=== PATIENT | male | born 1990 | race Caucasian/White ===

== ENCOUNTER 2020-03-17 10:56 | Outpatient (REF) | payer OTHER, SELFPAY | END 2020-03-17 10:57 | disposition home or self-care (01) | LOC: HO.LAB 10:56 | PROVIDERS: Visit Provider Internal Medicine | DX: Z20.828 Contact with and (suspected) exposure to other viral communicable diseases (principal) | CPT/HCPCS: C9803; U0003 ==

== ENCOUNTER 2020-04-15 09:01 | Emergency (ER) | payer OTHER, SELFPAY ==
--- NOTE | 2020-04-15 09:13 | ED.SKABFB ---
HPI - Skin/Abscess/Foreign Bdy General Chief complaint: Skin/Abscess/Foreign Body Stated complaint: rash Time Seen by Provider: 04/15/20 09:13 Source: patient Mode of arrival: ambulatory Limitations: no limitations History of Present Illness HPI narrative: 29 y/o healthy male presenting with itchy rash to his chest neck and arms that started 2 nights ago. He took Benadryl with some relief last night. He denies new soaps, detergents, colognes, or environmental exposures. He has had a rash like this once before several years ago but did not know the cause at the time. It resolved on its own. He denies shortness of breath, wheezing, facial swelling. No known allergies. MD complaint: rash Onset (ago): day(s) (2) Tetanus up to date: unsure Location: neck, chest, back, LUE and RUE Severity: moderate Severity scale (1-10): 6 Quality: burning, constant and pruritic Pain Consistency: intermittent Relieving factors: medication Exacerbating factors: palpation Context: none Associated symptoms: denies other symptoms Treatments prior to arrival: none Related Data Previous Rx's Medication Instructions Recorded prednisone 40 mg PO DAILY #10 tab 04/15/20 Allergies Allergy/AdvReac Type Severity Reaction Status Date / Time No Known Allergies Allergy Unverified 01/21/20 18:54 Review of Systems Review of Systems: Constitutional: No Fever, No Chills ENT/Mouth: No sore throat, No Swallowing Difficulty Eyes: No Eye Pain, No Swelling, No Redness Cardiovascular: No Chest Pain, No SOB Respiratory: No Cough, No Sputum, No Wheezing, No dyspnea Gastrointestinal: No Nausea, No Vomiting, No Diarrhea, No abdominal Pain Musculoskeletal: No joint pain, No Myalgias Skin: No Skin Lesions, + rash Neuro: No Headache PMFSH Past Medical History Attestation statement: The following information was validated with the patient. Medical History (Updated 04/15/20 @ 09:51 by SHERRI Howell) No known health problems Social History Social History Advance Directives: No Advance Directives Information Provided: No Physical Exam Vital Signs: Vital Signs: Last Vital Signs Temp 98.2 F 04/15/20 09:35 Pulse 76 04/15/20 09:35 Resp 16 04/15/20 09:35 BP 126/72 04/15/20 09:35 Pulse Ox 99 04/15/20 09:35 Body Mass Index 26.6 Appearance: Alert. Oriented X3. No acute distress. ENT: Pharynx normal. Neck: Normal inspection. Neck supple. CVS: Normal heart rate and rhythm. Pulses normal. Respiratory: No respiratory distress. Breath sounds normal. Abdomen: Soft and nontender Skin: Skin warm and dry. Normal skin color. Normal skin turgor. Erythematous maculopapular rash scattered on anterior chest wall, posterior neck, bilateral forarms with dermatographism, no crusting or ulcerations. Extremities: No lower extremity edema. Course Course Course Narrative: 29 y/o male presenting with pruritic rash on trunk and arms, unknown etiology. No wheezing, SOB or facial swelling. Will treat for contact dermatitis with course of prednisone and PRN benadryl. Encouraged to f/u with PCP next week and return to ER if symptoms worsen. Discharge Plan Discharge Clinical Impression: Contact dermatitis Qualifiers: Contact dermatitis type: irritant Contact dermatitis trigger: unspecified trigger Qualified Code(s): L24.9 - Irritant contact dermatitis, unspecified cause Patient Disposition: Home, Self-Care Instructions: Dermatitis (ED) Additional Instructions: Take the prescribed Prednisone starting tomorrow - you were given your 1st dose today while in the ER. Take Benadryl 25 mg every 4-6 hours as needed for itching. Use hypoallergenic soap. Avoid lotion, cologne or scented soap. Follow up with your doctor next week. If symptoms worsen, or if you develop shortness of breath, wheezing, facial swelling come back to the ER for further evaluation. Prescriptions: New prednisone 20 mg tablet 40 mg PO DAILY Qty: 10 RF: 0 Stand Alone Forms: Work/School Release Discharge Date/Time: 04/15/20 10:10 Print Language: Citizen Of [place]
[2020-04-15 09:35] VITALS: BP 126/72; PULSE 76; RESP 16; TEMP 36.8; O2SAT 99; BMI 26.6
[2020-04-15] MEDS: diphenhydrAMINE HCL 25 MG TABLET PO (09:51)
[2020-04-15] MEDS: predniSONE 10 MG TABLET 50 MG PO (09:52)
== END 2020-04-15 10:10 | disposition home or self-care (01) ==
PROVIDERS: Emergency Provider Emergency Medicine
DX: L24.9 Irritant contact dermatitis, unspecified cause (principal); Z79.899 Other long term (current) drug therapy
CPT/HCPCS: 99283; Q0163

== ENCOUNTER 2020-05-30 11:48 | Outpatient (REF) | payer OTHER, SELFPAY ==
--- NOTE | 2020-05-30 13:26 | XR_ITS ---
EXAMINATION: XR ANKLE, LEFT CLINICAL INFORMATION: Pain COMPARISON: None TECHNIQUE: AP, lateral, and mortise views of the left ankle. FINDINGS: The bones and soft tissues are normal. No fracture. Alignment is anatomic. Joint spaces are maintained. No joint effusion. XR/XR ankle LT min 3V IMPRESSION: Normal left ankle.
== END 2020-05-30 11:49 | disposition home or self-care (01) ==
LOC: HO.HOSX 11:48
PROVIDERS: Visit Provider Physician Assistant
DX: M25.572 Pain in left ankle and joints of left foot (principal)
CPT/HCPCS: 73610; 99202

== ENCOUNTER 2020-08-03 11:00 | Outpatient (RCR) | payer OTHER, SELFPAY ==
--- NOTE | 2020-06-15 11:56 | MHC.PT.EP ---
[facility] [place] Office [place] Office [place] Office [address] [phone] F: [phone] F: [phone] F: [phone] F: [phone] Physical Therapy Plan of Care Date of Evaluation: 06/15/20 Date of Surgery: Diagnosis: pain in left ankle and joints of left foot Assessment: The patient has reduced ankle ROM, strength as a result of chronic pain. No swelling. No redness noted. Pt has a fairly rigid ankle on left and right left worse than right. 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 He will benefit from ankle DF stretching, pain relieving modalities such as ionto. KT for support, and LE strengthening. Frequency and Duration: The patient will be seen 2x/week x 4 weeks Short Term Goals: 1. Pt to be able to walk with a heel to toe reciprocal gait pattern pain free. 2. Pt to have at least 5 degrees of PROM improved with ankle DF. Penitentiary Goals: 1. Pt to be able to return to all functional tasks without pain limitation. 2. Pt to have AROM of left ankle DF at least 10 degrees for functional use. 3. Pt to be able to return to stair climbing without pain. Treatment Plan: Modalities to reduce pain, spasms and effusion. Manual therapy to restore motion and function. Therapeutic exercise to improve strength and flexibility. Neuromuscular re-education for posture and balance. Therapeutic activities to return to functional activities of daily living. Electronically signed by: Cassandra Wade PT DPT Please sign and return to therapist. Thank you for your referral.
== END 2020-08-13 08:00 | disposition home or self-care (01) ==
LOC: HO.PT 11:00
PROVIDERS: Visit Provider Physician Assistant
DX: M25.572 Pain in left ankle and joints of left foot (principal)
CPT/HCPCS: 97035; 97110; 97112; 97140; 97161; 97530; 97535

== ENCOUNTER 2022-05-18 19:33 | Inpatient (IN) | payer OTHER, SELFPAY ==
--- NOTE | ~2022-05-18 | XR_ITS ---
EXAMINATION: XR CHEST CLINICAL INFORMATION: NG tube placement confirmation COMPARISON: None TECHNIQUE: Frontal view of the chest was obtained. FINDINGS: Enteric tube terminates in the stomach. Lung volumes are low. No consolidation, edema, or effusion. No pneumothorax. The cardiomediastinal silhouette is within normal limits. XR/XR chest 1V IMPRESSION: Enteric tube terminating in the stomach.
--- NOTE | ~2022-05-18 | XR_ITS ---
EXAMINATION: XR ABDOMEN KUB CLINICAL INDICATION: Small bowel obstruction COMPARISON: Abdomen CT from 05/18/2022 TECHNIQUE: AP view of the abdomen. FINDINGS: Lung bases are normal. The tip of the enteric tube is below the diaphragm and in region of the gastric body. Stomach is decompressed. The visualized loops of small bowel that contain gas in the mid to upper abdomen are in the normal size range. There is contrast material within the nondilated colon. No pneumoperitoneum. The visualized bones are normal. XR/XR KUB IMPRESSION: * The tip of the enteric tube is below the diaphragm within the region of gastric body. * There is radiographic improvement in previously observed small bowel obstruction. The currently visualized small bowel loops are in the normal size range. No pneumoperitoneum.
--- NOTE | ~2022-05-18 | CT_ITS ---
EXAMINATION: CT ABDOMEN AND PELVIS WITH CONTRAST CLINICAL INFORMATION: Abdominal pain, nausea and vomiting. COMPARISON: None. TECHNIQUE: Multidetector volumetric images were obtained from the superior aspect of the liver through the pubic symphysis following administration 85 mL of Omnipaque 350 intravenous contrast. Sagittal and coronal reformatted images were obtained on the technologist's workstation. Oral contrast: No This CT examination was performed using dose optimization techniques as appropriate, variously including the following: *Automated exposure control *Adjustment of mA and/or kV according to patient size (this includes techniques or standardized protocols for targeted exams where dose is matched to indication/reason for exam; i.e. extremities or head) *Use of iterative reconstruction technique DLP: 513 mGy-cm FINDINGS: LUNG BASES: No focal consolidation or pleural effusion. LIVER, GALLBLADDER, AND BILIARY TREE: The liver is normal in size, shape, and attenuation. No focal hepatic lesion or biliary ductal dilatation is present. The gallbladder is unremarkable with no evidence of radiopaque gallstones, gallbladder wall thickening, or obvious pericholecystic inflammatory changes. PANCREAS: Unremarkable. SPLEEN: Unremarkable. ADRENAL GLANDS: Unremarkable. KIDNEYS AND URETERS: The kidneys are normal in size, shape, and attenuation. No hydronephrosis, hydroureter, or calculi seen. No perinephric stranding. BLADDER: Unremarkable. GASTROINTESTINAL TRACT: Small bowel dilatation measuring up to 4.2 cm in diameter with air-fluid levels most consistent with a small bowel obstruction. There are tandem areas of luminal narrowing with hyperemia in the right lower quadrant within the distal ileum, for instance as identified on coronal image 31, series 5. No evidence of free air or pneumatosis. No intra-abdominal collection. Mild colonic diverticulosis with no pericolonic inflammatory changes. Normal short appendix (5:47). ABDOMINAL WALL: No significant hernia is appreciated. LYMPH NODES: Engorged mesenteric vasculature with scattered prominent but not pathologically enlarged mesenteric lymph nodes. VASCULAR: Abdominal aorta is of normal diameter. The main portal vein is patent. PELVIC VISCERA: Unremarkable. OSSEOUS STRUCTURES: No acute or aggressive appearing osseous abnormalities. CT/CT abdomen pelvis w IV con IMPRESSION: Findings are most suggestive of a high-grade small bowel obstruction transitioning in the right lower quadrant with there are some loops of distal ileum demonstrating luminal narrowing and hyperemia. No pneumatosis or free air. No drainable intra-abdominal collection.
[2022-05-18 19:44] VITALS: BP 126/72; PULSE 117; RESP 18; TEMP 38.2; O2SAT 97; BMI 28.1
--- NOTE | 2022-05-18 19:46 | ED.ABDPAIN ---
HPI - Abdominal Pain General Chief Complaint: Abdominal Pain <Yolis Lopez NP - Last Filed: 05/18/22 19:48> Stated Complaint: pain in stomach and body <Yolis Lopez NP - Last Filed: 05/18/22 19:48> Time Seen by Provider: 05/18/22 21:43 <Yolis Lopez NP - Last Filed: 05/18/22 19:48> Source: patient <SHERRI Armstrong - Last Filed: 05/19/22 00:42> Mode of arrival: ambulatory <SHERRI Armstrong - Last Filed: 05/19/22 00:42> Limitations: no limitations <SHERRI Armstrong Last Filed: 05/19/22 00:42> History of Present Illness HPI narrative: This is a 31-year-old male without significant medical history presenting to the emergency department with complaints of nausea, vomiting, right-sided abdominal pain that started this morning. According to patient with bothering him most is a abdominal pain, he tells me it started in his epigastric region and now he feels that to the whole right side of his abdomen, he tells me that the pain is constant in nature, describes it as a stabbing pain. Reports this is never happened to him before. He tells me he still has his gallbladder and his appendix. Unable to tell me aggravating or alleviating factors. Patient tells me he has vomited a few times today and has had little to no appetite. He tells me he just does not feel well and he feels like he has no energy. Denies chest pain, shortness of breath, headache, vision changes, dizziness, weakness, blood in stool, blood in vomit, changes in urination. <SHERRI Armstrong - Last Filed: 05/19/22 00:42> Related Data Home Medications: Previous Rx's Medication Instructions Recorded prednisone 20 mg tablet 40 mg PO DAILY #10 tabs 04/15/20 <Yolis Lopez NP - Last Filed: 05/18/22 19:48> Allergies/Adverse Reactions: Allergies Allergy/AdvReac Type Severity Reaction Status Date / Time No Known Allergies Allergy Verified 05/30/20 13:45 <Yolis Lopez NP - Last Filed: 05/18/22 19:48> Review of Systems Review of Systems Constitutional : No Weight loss, No Fever, No Chills, + Fatigue, + Malaise ENT/Mouth : No sore throat, No Rhinorrhea Eyes: No Eye Pain, No Swelling, No Redness Cardiovascular : No Chest Pain, No SOB, No Dyspnea on Exertion, No Orthopnea, No Edema, No Palpitations Respiratory : No Cough, No Sputum, No Wheezing Gastrointestinal : + Nausea, + Vomiting, No Diarrhea, No Constipation, + abdominal Pain, No Hematochezia, No Melena Genitourinary : No Dysuria, No Urinary Frequency, No Hematuria, Musculoskeletal : No joint pain, + Myalgias, No Joint Swelling Skin : No Skin Lesions, No rash Neuro : No Weakness, No Numbness, No Dizziness, No Headache Psych : No Anxiety/Panic, No Depression All other systems reviewed and are negative <SHERRI Armstrong - Last Filed: 05/19/22 00:42> Yes all other systems are reviewed and are negative <SHERRI Armstrong - Last Filed: 05/19/22 00:42> PMFSH Past Medical History Attestation statement: The following information was validated with the patient. 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 <Yolis Lopez NP - Last Filed: 05/18/22 19:48> Physical Exam ED Vital Signs: Vital Signs - 24 hr 05/18/22 19:44 05/18/22 21:27 05/18/22 22:59 Temperature 100.7 F H 99.9 F 99.5 F Pulse Rate 117 H 96 95 Respiratory Rate 18 22 H 22 H Blood Pressure 126/72 130/72 132/75 Pulse Oximetry 97 96 98 Oxygen Delivery Method Room Air Room Air Room Air BMI result Body Mass Index 28.1 <Yolis Lopez NP - Last Filed: 05/18/22 19:48> Vital Signs - 24 hr 05/18/22 19:44 05/18/22 21:27 05/18/22 22:59 Temperature 100.7 F H 99.9 F 99.5 F Pulse Rate 117 H 96 95 Respiratory Rate 18 22 H 22 H Blood Pressure 126/72 130/72 132/75 Pulse Oximetry 97 96 98 Oxygen Delivery Method Room Air Room Air Room Air BMI result Body Mass Index 28.1 Patient was initially noted to have low-grade fever and slight tachycardia <SHERRI Armstrong - Last Filed: 05/19/22 00:42> Appearance: Alert.? Oriented X3.? No acute distress.? Head: Normocephalic, atraumatic, no step-offs or deformities Eyes: Pupils equal, round and reactive to light.? Neck: Normal inspection.? Neck supple.? CVS: Normal heart rate and rhythm.? Pulses normal.? Respiratory: No respiratory distress.? Breath sounds normal.? Abdomen: Soft and tenderness to right side of abdomen. Hypoactive bowel sounds Skin: Skin warm and dry.? Normal skin color.? Normal skin turgor.? Extremities: No lower extremity edema.? No calf ttp. 5/5 strength to bilateral upper and lower extremities Neuro: Oriented X 3.? No motor deficit.? No sensory deficit. CN 2-12 intact <SHERRI Armstrong - Last Filed: 05/19/22 00:42> Course Course Course Narrative: This is a rapid medical exam. Defer additional HPI, ROS, PE to primary provider. 31 yo male with here with abdominal pain, headache, body aches since waking. Patient with fever in triage. Will give Tylenol, send testing for flu, COVID, RSV. <Yolis Lopez NP - Last Filed: 05/18/22 19:48> Reevaluation(s) Reevaluation #1: CBC appears to be within normal limits. Chemistry with no acute electrolyte abnormalities requiring intervention. Slightly elevated bilirubin 2.2 and slightly elevated transaminases. Normal lipase. Patient's CT of the abdomen and pelvis showing high-grade small-bowel obstruction with a transition point in the right lower quadrant where there is some loops of distal ileum demonstrating luminal narrowing and hyperemia, consistent with pain to palpation on exam. Will reach out to surgery. Plan to put NG tube in. <SHERRI Armstrong - Last Filed: 05/19/22 00:42> Time: 00:34 <SHERRI Armstrong - Last Filed: 05/19/22 00:42> Medical Decision Making Medical Decision Making [facility] Narrative: 2300 31-year-old male presents with nausea, vomiting, abdominal pain since this morning. Poor p.o. intake as well. Upon physical examination patient tender to the entire right side of abdomen w/ hypoactive bowel sounds. Patient's vital signs initially with fever, fever improved after Tylenol. Concerns for possible viral infection. Will rule out intra-abdominal processes such as appendicitis, cholecystitis, diverticulitis, obstruction. However on my examination there is no signs of acute abdomen. Plan at this time labs, imaging, urine. Will give GI cocktail <SHERRI Armstrong - Last Filed: 05/19/22 00:42> Differential Diagnosis Differential Diagnoses: The differential diagnosis associated with the presentation includes <SHERRI Armstrong - Last Filed: 05/19/22 00:42> Concerns for possible viral infection. Will rule out intra-abdominal processes such as appendicitis, cholecystitis, diverticulitis, obstruction. However on my examination there is no signs of acute abdomen. <SHERRI Armstrong Last Filed: 05/19/22 00:42> Admission/Observation Consideration of admission/observation: Escalation of care including admission/observation considered <SHERRI Armstrong Last Filed: 05/19/22 00:42> Consult Healthcare Provider Management of the patient was discussed with: Dampener Operator () <SHERRI Armstrong Last Filed: 05/19/22 00:42> Lab Data [facility] Lab Attestation statement: I reviewed the patient's lab results. <SHERRI Armstrong - Last Filed: 05/19/22 00:42> Result Diagrams: 05/18/22 22:41 05/18/22 22:41 <Yolis Lopez NP - Last Filed: 05/18/22 19:48> Labs: Lab Results 05/18/22 05/18/22 05/18/22 Range/Units 19:51 22:41 22:41 WBC 8.5 (4.8-10.8) X10*3/uL RBC 4.32 L (4.60-5.80) X10*6/uL Hgb 14.2 (14.0-18.0) g/dl Hct 39.7 L (42.0-52.0) % MCV 91.9 (80.0-98.0) fL MCH 32.9 (27.0-33.0) pg MCHC 35.8 (31.0-36.0) g/dl RDW 12.5 (11.0-16.0) % Plt Count 177 (160-400) X10*3/uL MPV 9.4 (9.4-12.4) fL Immature Gran % (Auto) 0.4 (0.0-0.4) % Neut % (Auto) 83.9 H (45-73) % Lymph % (Auto) 6.6 L (20-40) % [place] % (Auto) 8.7 (2-11) % Eos % (Auto) 0.2 (0-4) % Baso % (Auto) 0.2 (0-2) % Lymph # (Auto) 0.6 L (1.2-4.9) X10*3/uL [place] # (Auto) 0.7 (0.1-1.2) X10*3/uL Eos # (Auto) 0.0 (0.0-0.4) X10*3/uL Baso # (Auto) 0.0 (0.0-0.2) X10*3/uL Abs Immat Gran (auto) 0.03 (0.00-0.03) X10*3/uL Absolute Neuts (auto) 7.1 (2.0-8.3) x10*3/uL Absolute Nucleated RBC 0.000 (0.0-0.012) X10*3/uL Nucleated RBC % (auto) 0.0 (0.0-0.2) /100WBC Sodium 139 (135-145) mmol/L Potassium 3.8 (3.3-5.1) mmol/L Chloride 104 (96-108) mmol/L Carbon Dioxide 26 (22-29) mmol/L Anion Gap 13 (12-20) BUN 18 H (9-16) mg/dL Creatinine 0.91 (0.5-1.4) mg/dL Estim Creat Clear Calc 124.1 Estimated GFR > 60 Random Glucose 128 H (60-115) mg/dL Calcium 9.3 (8.4-10.2) mg/dL Total Bilirubin 2.2 H (0.0-1.0) mg/dL AST 39 H (5-37) U/L ALT 48 H (0-40) U/L Alkaline Phosphatase 76 (39-117) U/L Total Protein 8.1 H (6.5-8.0) g/dL Albumin 4.9 (3.5-5.0) g/dL Lipase 7 L (8-78) U/L Influenza Type A (PCR) NEGATIVE (Negative) Influenza Type B (PCR) NEGATIVE (Negative) RSV RNA Qual (PCR) NEGATIVE (Negative) SARS-CoV-2 RNA (RT-PCR) NEGATIVE (Negative) <Yolis Lopez, BATCH FREEZER - Last Filed: 05/18/22 19:48> Lab Results 05/18/22 05/18/22 05/18/22 Range/Units 19:51 22:41 22:41 WBC 8.5 (4.8-10.8) X10*3/uL RBC 4.32 L (4.60-5.80) X10*6/uL Hgb 14.2 (14.0-18.0) g/dl Hct 39.7 L (42.0-52.0) % MCV 91.9 (80.0-98.0) fL MCH 32.9 (27.0-33.0) pg MCHC 35.8 (31.0-36.0) g/dl RDW 12.5 (11.0-16.0) % Plt Count 177 (160-400) X10*3/uL MPV 9.4 (9.4-12.4) fL Immature Gran % (Auto) 0.4 (0.0-0.4) % Neut % (Auto) 83.9 H (45-73) % Lymph % (Auto) 6.6 L (20-40) % [place] % (Auto) 8.7 (2-11) % Eos % (Auto) 0.2 (0-4) % Baso % (Auto) 0.2 (0-2) % Lymph # (Auto) 0.6 L (1.2-4.9) X10*3/uL [place] # (Auto) 0.7 (0.1-1.2) X10*3/uL Eos # (Auto) 0.0 (0.0-0.4) X10*3/uL Baso # (Auto) 0.0 (0.0-0.2) X10*3/uL Abs Immat Gran (auto) 0.03 (0.00-0.03) X10*3/uL Absolute Neuts (auto) 7.1 (2.0-8.3) x10*3/uL Absolute Nucleated RBC 0.000 (0.0-0.012) X10*3/uL Nucleated RBC % (auto) 0.0 (0.0-0.2) /100WBC Sodium 139 (135-145) mmol/L Potassium 3.8 (3.3-5.1) mmol/L Chloride 104 (96-108) mmol/L Carbon Dioxide 26 (22-29) mmol/L Anion Gap 13 (12-20) BUN 18 H (9-16) mg/dL Creatinine 0.91 (0.5-1.4) mg/dL Estim Creat Clear Calc 124.1 Estimated GFR > 60 Random Glucose 128 H (60-115) mg/dL Calcium 9.3 (8.4-10.2) mg/dL Total Bilirubin 2.2 H (0.0-1.0) mg/dL AST 39 H (5-37) U/L ALT 48 H (0-40) U/L Alkaline Phosphatase 76 (39-117) U/L Total Protein 8.1 H (6.5-8.0) g/dL Albumin 4.9 (3.5-5.0) g/dL Lipase 7 L (8-78) U/L Influenza Type A (PCR) NEGATIVE (Negative) Influenza Type B (PCR) NEGATIVE (Negative) RSV RNA Qual (PCR) NEGATIVE (Negative) SARS-CoV-2 RNA (RT-PCR) NEGATIVE (Negative) <SHERRI Armstrong - Last Filed: 05/19/22 00:42> Independent Interpretation I performed an independent interpretation of an: CT Scan (SBO) <SHERRI Armstrong - Last Filed: 05/19/22 00:42> Radiology Impression Discussion of test interpretation with radiology: I have reviewed the radiologist's reading. <SHERRI Armstrong - Last Filed: 05/19/22 00:42> Core Measures AMI core measures followed: Yes <SHERRI Armstrong - Last Filed: 05/19/22 00:42> Measure exclusions: not indicated <SHERRI Armstrong - Last Filed: 05/19/22 00:42> Medications Administered Discontinued Medications Generic Name Dose Route Start Last Admin Trade Name Freq PRN Reason Stop Dose Admin Acetaminophen 975 mg 05/18/22 19:46 05/18/22 19:53 Acetaminophen 325 Mg Tablet PO 05/18/22 19:47 975 mg ONCE ONE Administration Al Hydroxide/Mg Hydroxide 30 ml 05/18/22 23:23 05/18/22 23:35 Magnesium Hydrox/Alum Hydrox 30 Ml Oral.Susp PO 05/18/22 23:24 30 ml ONCE ONE Administration Belladonna Alkaloids/Phenobarbital 10 ml 05/18/22 23:23 05/18/22 23:36 Phenobarb/Hyoscy/Atropine/Scop 10 Ml Elixir PO 05/18/22 23:24 10 ml ONCE ONE Administration Iohexol 85 ml 05/18/22 23:52 05/18/22 23:53 Iohexol 350 Mg/Ml 100 Ml Infus..Btl IV 05/18/22 23:53 85 ml ONCE ONE Administration Ketorolac Tromethamine 30 mg 05/18/22 23:23 05/18/22 23:35 Ketorolac Tromethamine 15 Mg/Ml Vial IVPUSH 05/18/22 23:24 30 mg ONCE ONE Administration Ondansetron HCl 4 mg 05/18/22 23:24 05/18/22 23:35 Ondansetron Hcl 4 Mg/2 Ml Vial IVPUSH 05/18/22 23:25 4 mg ONCE ONE Administration <Yolis Lopez NP - Last Filed: 05/18/22 19:48> Medications Administered Discontinued Medications Generic Name Dose Route Start Last Admin Trade Name Kevin PRN Reason Stop Dose Admin Acetaminophen 975 mg 05/18/22 19:46 05/18/22 19:53 Acetaminophen 325 Mg Tablet PO 05/18/22 19:47 975 mg ONCE ONE Administration Al Hydroxide/Mg Hydroxide 30 ml 05/18/22 23:23 05/18/22 23:35 Magnesium Hydrox/Alum Hydrox 30 Ml Oral.Susp PO 05/18/22 23:24 30 ml ONCE ONE Administration Belladonna Alkaloids/Phenobarbital 10 ml 05/18/22 23:23 05/18/22 23:36 Phenobarb/Hyoscy/Atropine/Scop 10 Ml Elixir PO 05/18/22 23:24 10 ml ONCE ONE Administration Iohexol 85 ml 05/18/22 23:52 05/18/22 23:53 Iohexol 350 Mg/Ml 100 Ml Infus..Btl IV 05/18/22 23:53 85 ml ONCE ONE Administration Ketorolac Tromethamine 30 mg 05/18/22 23:23 05/18/22 23:35 Ketorolac Tromethamine 15 Mg/Ml Vial IVPUSH 05/18/22 23:24 30 mg ONCE ONE Administration Ondansetron HCl 4 mg 05/18/22 23:24 05/18/22 23:35 Ondansetron Hcl 4 Mg/2 Ml Vial IVPUSH 05/18/22 23:25 4 mg ONCE ONE Administration <SHERRI Armstrong - Last Filed: 05/19/22 00:42> Critical Care Time Critical Care Time Critical Care Time: Yes <SHERRI Armstrong - Last Filed: 05/19/22 00:42> Total Critical Care Time: 35 <SHERRI Armstrong - Last Filed: 05/19/22 00:42> Attestation: I attest to this time spent taking care of the patient, obtaining history, physical, reviewing labs, imaging, speaking to my attending, speaking to specialist. <SHERRI Armstrong - Last Filed: 05/19/22 00:42> Discharge Plan Discharge Clinical Impression: Small bowel obstruction, Nausea & vomiting <Yolis Lopez NP - Last Filed: 05/18/22 19:48> Patient Disposition: Admitted As Inpatient <Yolis Lopez NP - Last Filed: 05/18/22 19:48> Prescriptions: No Action prednisone 20 mg tablet 40 mg PO DAILY Qty: 10 0RF <Yolis Lopez NP - Last Filed: 05/18/22 19:48>
[2022-05-18] MEDS: Acetaminophen 325 MG TABLET 975 MG PO (19:53)
[2022-05-18 20:41] LABS: Influenza A PCR NEGATIVE (Negative); Influenza B PCR NEGATIVE (Negative); Resp Syncy Virus RNA Qual PCR NEGATIVE (Negative); SARS COV2 PCR INHOUSE NEGATIVE (Negative)
[2022-05-18 21:27] VITALS: BP 130/72; PULSE 96; RESP 22; TEMP 37.7; O2SAT 96
--- NOTE | 2022-05-18 21:32 | PC.NURSE ---
Addendum entered by Griselda Pace 05/18/22 22:18: Pt has LRQ during palpation pt grimace. Original Note: Assessment : Pt's V/S are stable, pt is a/o x 4, pt is ridgid distended abd and N/V x 1 day, pt lungs sounds are clear throughout. IV has been inserted 20g.
[2022-05-18 22:48] LABS: MANUAL DIFF FLAG NO
[2022-05-18 22:49] LABS: Basophils Percent Auto 0.2 % (0-2); Eosinophils Percent Auto 0.2 % (0-4); Hematocrit 39.7 % (42.0-52.0); Hemoglobin 14.2 g/dl (14.0-18.0); Imm Gran Abs Auto 0.03 X10*3/uL (0.00-0.03); Imm Gran Pct Auto 0.4 % (0.0-0.4); Lymphocytes Absolute Auto 0.6 X10*3/uL (1.2-4.9); Lymphocytes Percent Auto 6.6 % (20-40); Mean Corpuscular HGB Conc 35.8 g/dl (31.0-36.0); Mean Corpuscular Hemoglobin 32.9 pg (27.0-33.0); Mean Corpuscular Volume 91.9 fL (80.0-98.0); Mean Platelet Volume 9.4 fL (9.4-12.4); Monocytes Absolute Auto 0.7 X10*3/uL (0.1-1.2); Monocytes Percent Auto 8.7 % (2-11); Neutrophils Absolute Auto 7.1 x10*3/uL (2.0-8.3); Neutrophils Percent Auto 83.9 % (45-73); Platelet Count 177 X10*3/uL (160-400); Red Blood Count 4.32 X10*6/uL (4.60-5.80); Red Cell Distribution Width 12.5 % (11.0-16.0); White Blood Count 8.5 X10*3/uL (4.8-10.8)
[2022-05-18 22:59] VITALS: BP 132/75; PULSE 95; RESP 22; TEMP 37.5; O2SAT 98
[2022-05-18 23:25] LABS: Alanine Aminotransferase 48 U/L (0-40); Albumin Level 4.9 g/dL (3.5-5.0); Alkaline Phosphatase 76 U/L (39-117); Anion Gap 13 (12-20); Aspartate Amino Transferase 39 U/L (5-37); Bilirubin Total 2.2 mg/dL (0.0-1.0); Blood Urea Nitrogen 18 mg/dL (9-16); Calcium 9.3 mg/dL (8.4-10.2); Carbon Dioxide 26 mmol/L (22-29); Chloride 104 mmol/L (96-108); Creatinine Clr Calc Pharmacy 124.1; Estimated Glomerular Filt Rate > 60; Glucose Random 128 mg/dL (60-115); Lipase 7 U/L (8-78); Potassium 3.8 mmol/L (3.3-5.1); Sodium 139 mmol/L (135-145); Total Protein 8.1 g/dL (6.5-8.0)
[2022-05-18] MEDS: Ketorolac Tromethamine 15 MG/ML VIAL 30 MG IVPUSH (23:35)
[2022-05-18] MEDS: Magnesium Hydrox/Alum Hydrox 30 ML ORAL.SUSP PO (23:35)
[2022-05-18] MEDS: ondansetron HCL 4 MG/2 ML VIAL IVPUSH (23:35)
[2022-05-18] MEDS: PHENobarb/Hyoscy/Atropine/Scop 10 ML ELIXIR PO (23:36)
[2022-05-18] MEDS: iohexoL 350 MG/ML 100 ML INFUS..BTL 85 ML IV (23:53)
[2022-05-19 01:43] VITALS: BP 121/69; PULSE 77; RESP 17; O2SAT 97
[2022-05-19] MEDS: Pantoprazole Sodium 40 MG/10 ML VIAL IVPUSH ×2 (02:13→13:38)
[2022-05-19] MEDS: Piperacillin Sodium/Tazobactam 3.375 GM in 0.9 % Sodium Chloride 50 ML IV ×3 (02:13→18:56)
[2022-05-19] MEDS: Morphine Sulfate 4 MG/ML CARTRIDGE IVPUSH (02:14)
[2022-05-19] MEDS: 0.9 % Sodium Chloride 1,000 ML 100 ML IVCONT ×3 (02:15→20:53)
--- NOTE | 2022-05-19 02:43 | PC.NURSE ---
NG inserted into right nare, patient tolerated procedure well.
--- NOTE | 2022-05-19 02:55 | PC.NURSE ---
Pt's spouse Laura
[2022-05-19 03:52] VITALS: BMI 28.2
[2022-05-19 03:59] VITALS: BP 122/68; PULSE 80; RESP 18; TEMP 36.4; O2SAT 97
[2022-05-19 04:45] VITALS: BMI 28.2
[2022-05-19 05:34] LABS: MANUAL DIFF FLAG NO
[2022-05-19 05:38] LABS: Basophils Percent Auto 0.2 % (0-2); Eosinophils Absolute Auto 0.1 X10*3/uL (0.0-0.4); Eosinophils Percent Auto 1.1 % (0-4); Hematocrit 38.9 % (42.0-52.0); Hemoglobin 13.7 g/dl (14.0-18.0); Imm Gran Abs Auto 0.03 X10*3/uL (0.00-0.03); Imm Gran Pct Auto 0.4 % (0.0-0.4); Lymphocytes Percent Auto 11.7 % (20-40); Mean Corpuscular HGB Conc 35.2 g/dl (31.0-36.0); Mean Corpuscular Hemoglobin 32.8 pg (27.0-33.0); Mean Corpuscular Volume 93.1 fL (80.0-98.0); Monocytes Absolute Auto 0.8 X10*3/uL (0.1-1.2); Neutrophils Absolute Auto 6.5 x10*3/uL (2.0-8.3); Neutrophils Percent Auto 77.6 % (45-73); Platelet Count 165 X10*3/uL (160-400); Red Blood Count 4.18 X10*6/uL (4.60-5.80); Red Cell Distribution Width 12.6 % (11.0-16.0); White Blood Count 8.4 X10*3/uL (4.8-10.8)
[2022-05-19] MEDS: HYDROmorphone HCl 1 MG/ML SYRINGE 0.5 MG IVPUSH ×2 (06:04→15:57)
[2022-05-19 06:52] VITALS: BP 105/58; PULSE 88; RESP 16; TEMP 36.6; O2SAT 94
--- NOTE | 2022-05-19 07:21 | PHA.MEDREC ---
Pharmacy Consult ? Medication Reconciliation Pharmacy has completed the medication reconciliation. Reviewed med rec done by nursing (Maged).
[2022-05-19] MEDS: Ketorolac Tromethamine 30 MG/ML VIAL IVPUSH ×2 (09:13→20:19)
[2022-05-19 15:51] VITALS: BP 110/71; PULSE 82; RESP 18; TEMP 36.4; O2SAT 96
--- NOTE | 2022-05-19 15:54 | P.HPGS_ITS ---
History of Present Illness History of Present Illness Date of Service: 05/19/22 Chief complaint: abdo pain Narrative: Albert Mahan is a 31 year old male who came into the emergency room because he had 24 hours of abdominal pain. He went to work yesterday but the pain was worse so he came to the emergency room. He was vomiting and he did have passage of some stool. No other sick contacts he has not eaten anything unusual he has not had any abdominal surgery in the past. He denies any knowledge of his family having ulcerative colitis or Crohn's disease. NG tube was placed but despite this he still vomited earlier on the floor. Uncertain if it was working as well. He denies any fevers or chills. He has never had pain like this before In the emergency room the patient had a CT scan which showed areas near the distal ileum with narrowing of the small bowel no evidence of ischemic bowel. No free air. His white count is normal Review of Systems Review of Systems: Yes all other systems are reviewed and are negative PMFSH Past Medical History Medical History No known health problems Social History Social History Household Members: Family Housing: Apartment Do you presently have visiting nurse or other home services: No Alcohol intake: current Alcohol intake frequency: holidays/special occasions only Patient Tobacco Use Status: Current everyday Tobacco user Tobacco use type: Cigarette Smoked in Last 30 Days: Yes e-Cigarette/Vaping Use: Never Used Patient Interested in Nicotine Replacement: Yes Patient Given Instructions on How to Stop Smoking: No Second Hand Smoke Exposure: No Use of substances other than those prescribed or required for medical reasons: No Currently Displaying Signs/Symptoms of Drug Intoxication Withdrawal: No Any prior treatment program specific to substance use: No Have you been hit, kicked, punched, or otherwise hurt by someone within the past year? 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 Meds Allergies Allergy/AdvReac Type Severity Reaction Status Date / Time No Known Allergies Allergy Verified 05/30/20 13:45 Active Medications: Current Medications Hydromorphone HCl (Hydromorphone Hcl 1 Mg/Ml Syringe) 0.5 mg IVPUSH Q4H PRN; Protocol PRN Reason: Pain, Severe (Pain Scale 7-10) Last Admin: 05/19/22 06:04 Dose: 0.5 mg Sodium Chloride (Ns) 1,000 mls @ 100 mls/hr IVCONT .Q10H [facility] Last Admin: 05/19/22 13:37 Dose: 100 mls/hr Piperacillin Sod/Tazobactam (Sod 3.375 gm/ Sodium Chloride) 50 mls @ 100 mls/hr IV Q6H [facility] Last Infusion: 05/19/22 14:11 Dose: Infused Ketorolac Tromethamine (Ketorolac Tromethamine 30 Mg/Ml Vial) 30 mg IVPUSH Q6H PRN PRN Reason: Pain, Moderate (Pain Scale 4-6 Stop: 05/24/22 00:35 Last Admin: 05/19/22 09:13 Dose: 30 mg Ondansetron HCl (Ondansetron Hcl 4 Mg/2 Ml Vial) 4 mg IVPUSH RQ6H PRN PRN Reason: Nausea and Vomiting Pantoprazole Sodium (Pantoprazole Sodium 40 Mg/10 Ml Vial) 40 mg IVPUSH DAILY [facility] Last Admin: 05/19/22 13:38 Dose: 40 mg Pharmacy Consult (Consult Rx Perform Med Rec) 1 each MISCELLANE ONCE PRN PRN Reason: Consult order Sodium Chloride (0.9 % Sodium Chloride Flush 3 Ml Syringe) 3 ml IVFLUSH QSHIFT [facility] Last Admin: 05/19/22 15:29 Dose: Not Given Home Medications Medication Instructions Recorded Confirmed Last Taken Type No Known Home Meds 05/19/22 05/19/22 Unknown History Physical Exam Vital Signs: Vital Signs: Last Vital Signs Temp 97.6 F 05/19/22 15:51 Pulse 82 05/19/22 15:51 Resp 18 05/19/22 15:51 BP 110/71 05/19/22 15:51 Pulse Ox 96 05/19/22 15:51 O2 Del Method 05/19/22 15:51 BMI result Body Mass Index 28.2 Const: Orientation/consciousness: oriented to person, oriented to place and oriented to time HEENT: Head: Yes normal to inspection Resp: Effort & Inspection: normal respiratory effort and able to speak in complete sentences Auscultation: clear to auscultation bilaterally Cardio: Rate: regular rate Rhythm: regular rhythm GI: Other: abdomen soft mildly distended has some hypoactive bowel sounds tender in the mid abdomen but no rebound no guarding no peritoneal signs. Skin: General skin exam: no rashes or lesions noted Neuro: General: oriented to person, oriented to place and oriented to time Cognition (Neuro): normal cognition Extrem: General: Yes normal to inspection Psych: Appearance: grossly normal Mental Status: mental status grossly normal Affect: normal affect Results Results Labs: Short CBC 05/18/22 05/19/22 Range/Units 22:41 05:25 WBC 8.5 8.4 (4.8-10.8) X10*3/uL Hgb 14.2 13.7 L (14.0-18.0) g/dl Hct 39.7 L 38.9 L (42.0-52.0) % Plt Count 177 165 (160-400) X10*3/uL BMP 05/18/22 22:41 Sodium 139 Potassium 3.8 Chloride 104 Carbon Dioxide 26 BUN 18 H Creatinine 0.91 Calcium 9.3 Liver Function 05/18/22 Range/Units 22:41 Total Bilirubin 2.2 H (0.0-1.0) mg/dL AST 39 H (5-37) U/L ALT 48 H (0-40) U/L Alkaline Phosphatase 76 (39-117) U/L Albumin 4.9 (3.5-5.0) g/dL Abdomen CT scan report/results: report reviewed and image reviewed CT scan - pelvis: report reviewed and image reviewed Assessment and Plan (1) Small bowel obstruction: Status: Acute Plan 31-year-old male with partial small-bowel obstruction question etiology. He has never had any previous surgery and the appearance suggests that this could be some inflammatory infectious process. His white count is normal. At this point will treat with antibiotics bowel rest IV fluids and carry out a small- bowel Gastrografin challenge to determine the appearance of these areas of narrowing. Question whether this may be Crohn's disease. Will see results of Gastrografin study and consult GI as necessary. In the meantime continue NPO IV fluids NG tube to his intermittent suction and repeat blood work tomorrow . This was all discussed with the endocrinology physician and the patient understands and agrees Time Spent With Patient Time: Total time managing care of this patient today ____ minutes. Quality Stroke Does the patient have a stroke diagnosis?: No VTE Prior VTE?: No VTE Risk Level:: Surgical - low VTE Device Contraindication: N/A - Device Ordered VTE Drug Contraindication: Treatment Not Indicated Procedures Date of Service Date of Service: 05/19/22
[2022-05-19 20:00] VITALS: BP 123/72; PULSE 99; RESP 18; TEMP 36.7; O2SAT 96
[2022-05-19 22:17] VITALS: TEMP 37.9
--- NOTE | 2022-05-19 22:18 | PC.NURSE ---
Temp 100.2,Dr. Escobar notified
[2022-05-20 00:34] VITALS: TEMP 36.5
[2022-05-20] MEDS: Piperacillin Sodium/Tazobactam 3.375 GM in 0.9 % Sodium Chloride 50 ML IV ×4 (01:12→18:19)
[2022-05-20 03:27] VITALS: BP 118/69; PULSE 77; RESP 18; TEMP 36.3; O2SAT 96
[2022-05-20 06:36] LABS: MANUAL DIFF FLAG NO
[2022-05-20 06:42] LABS: Basophils Percent Auto 0.4 % (0-2); Eosinophils Absolute Auto 0.1 X10*3/uL (0.0-0.4); Eosinophils Percent Auto 1.7 % (0-4); Hematocrit 36.6 % (42.0-52.0); Hemoglobin 12.5 g/dl (14.0-18.0); Imm Gran Abs Auto 0.01 X10*3/uL (0.00-0.03); Imm Gran Pct Auto 0.2 % (0.0-0.4); Lymphocytes Absolute Auto 1.2 X10*3/uL (1.2-4.9); Lymphocytes Percent Auto 25.1 % (20-40); Mean Corpuscular HGB Conc 34.2 g/dl (31.0-36.0); Mean Corpuscular Hemoglobin 32.6 pg (27.0-33.0); Mean Corpuscular Volume 95.6 fL (80.0-98.0); Monocytes Absolute Auto 0.8 X10*3/uL (0.1-1.2); Monocytes Percent Auto 16.5 % (2-11); Neutrophils Absolute Auto 2.6 x10*3/uL (2.0-8.3); Neutrophils Percent Auto 56.1 % (45-73); Platelet Count 171 X10*3/uL (160-400); Red Blood Count 3.83 X10*6/uL (4.60-5.80); Red Cell Distribution Width 12.6 % (11.0-16.0); White Blood Count 4.6 X10*3/uL (4.8-10.8)
[2022-05-20 07:31] LABS: Alanine Aminotransferase 37 U/L (0-40); Alkaline Phosphatase 58 U/L (39-117); Anion Gap 15 (12-20); Aspartate Amino Transferase 22 U/L (5-37); Bilirubin Total 1.9 mg/dL (0.0-1.0); Blood Urea Nitrogen 19 mg/dL (9-16); Calcium 8.6 mg/dL (8.4-10.2); Carbon Dioxide 25 mmol/L (22-29); Chloride 106 mmol/L (96-108); Estimated Glomerular Filt Rate > 60; Glucose Random 98 mg/dL (60-115); Potassium 3.8 mmol/L (3.3-5.1); Sodium 142 mmol/L (135-145); Total Protein 6.9 g/dL (6.5-8.0)
[2022-05-20 07:53] VITALS: BP 124/68; PULSE 75; RESP 18; TEMP 36.4; O2SAT 97
[2022-05-20] MEDS: Pantoprazole Sodium 40 MG/10 ML VIAL IVPUSH (08:22)
[2022-05-20] MEDS: 0.9 % Sodium Chloride Flush 3 ML SYRINGE IVFLUSH (08:23)
[2022-05-20] MEDS: 0.9 % Sodium Chloride 1,000 ML 100 ML IVCONT ×2 (08:26→19:44)
[2022-05-20] MEDS: Ketorolac Tromethamine 30 MG/ML VIAL IVPUSH (08:37)
--- NOTE | 2022-05-20 11:16 | P.PNGS_ITS ---
Subjective Subjective Date of Service: 05/20/22 Interval history: feeling better passing gas and stool no pain Physical Exam Vital Signs: Vital Signs: Last Vital Signs Temp 97.5 F 05/20/22 07:53 Pulse 75 05/20/22 07:53 Resp 18 05/20/22 07:53 BP 124/68 05/20/22 07:53 Pulse Ox 97 05/20/22 07:53 O2 Del Method 05/20/22 07:53 BMI result Body Mass Index 28.2 Const: General: cooperative, healthy appearing and comfortable Orientation/consciousness: oriented to person, oriented to place and oriented to time Resp: Effort & Inspection: normal respiratory effort Auscultation: clear to auscultation bilaterally Cardio: Rate: regular rate Rhythm: regular rhythm GI: Other: soft no distension no tenderness good bowel sounds Neuro: General: oriented to person, oriented to place and oriented to time Psych: Appearance: grossly normal Mental Status: mental status grossly normal Objective Data Active Medications Hydromorphone HCl (Hydromorphone Hcl 1 Mg/Ml Syringe) 0.5 mg IVPUSH Q4H PRN; Protocol PRN Reason: Pain, Severe (Pain Scale 7-10) Last Admin: 05/19/22 15:57 Dose: 0.5 mg Documented By: KATELYN Sodium Chloride (Ns) 1,000 mls @ 100 mls/hr IVCONT .Q10H [facility] Last Admin: 05/20/22 08:26 Dose: 100 mls/hr Documented By: LIANNA Piperacillin Sod/Tazobactam (Sod 3.375 gm/ Sodium Chloride) 50 mls @ 100 mls/hr IV Q6H [facility] Last Infusion: 05/20/22 07:08 Dose: 0 mls/hr Documented By: LBANQUITA Acetaminophen (Ofirmev) 1,000 mg in 100 mls @ 400 mls/hr IV Q6H PRN PRN Reason: temp Ketorolac Tromethamine (Ketorolac Tromethamine 30 Mg/Ml Vial) 30 mg IVPUSH Q6H PRN PRN Reason: Pain, Moderate (Pain Scale 4-6 Stop: 05/24/22 00:35 Last Admin: 05/20/22 08:37 Dose: 30 mg Documented By: LIANNA Metoclopramide HCl (Metoclopramide Hcl 10 Mg/2 Ml Vial) 10 mg IVPUSH Q6H PRN PRN Reason: Nausea Ondansetron HCl (Ondansetron Hcl 4 Mg/2 Ml Vial) 4 mg IVPUSH RQ6H PRN PRN Reason: Nausea and Vomiting Pantoprazole Sodium (Pantoprazole Sodium 40 Mg/10 Ml Vial) 40 mg IVPUSH DAILY [facility] Last Admin: 05/20/22 08:22 Dose: 40 mg Documented By: LIANNA Pharmacy Consult (Consult Rx Perform Med Rec) 1 each MISCELLANE ONCE PRN PRN Reason: Consult order Sodium Chloride (0.9 % Sodium Chloride Flush 3 Ml Syringe) 3 ml IVFLUSH QSHIFT [facility] Last Admin: 05/20/22 08:23 Dose: 3 ml Documented By: LIANNA Labs 05/20/22 05:48 05/20/22 05:48 Labs: Laboratory Results - last 24 hr 05/20/22 05/20/22 05:48 05:48 MCV 95.6 MCH 32.6 MCHC 34.2 RDW 12.6 Plt Count 171 MPV 10.0 Immature Gran % (Auto) 0.2 Neut % (Auto) 56.1 Lymph % (Auto) 25.1 [place] % (Auto) 16.5 H Eos % (Auto) 1.7 Baso % (Auto) 0.4 Lymph # (Auto) 1.2 [place] # (Auto) 0.8 Eos # (Auto) 0.1 Baso # (Auto) 0.0 Abs Immat Gran (auto) 0.01 Absolute Neuts (auto) 2.6 Absolute Nucleated RBC 0.000 Nucleated RBC % (auto) 0.0 Anion Gap 15 Estim Creat Clear Calc 119.0 Estimated GFR > 60 Random Glucose 98 Calcium 8.6 D Total Bilirubin 1.9 H AST 22 ALT 37 Alkaline Phosphatase 58 Total Protein 6.9 Albumin 4.0 Procedures Date of Service Date of Service: 05/20/22 Progress Note: A&P Assessment and plan (1) Small bowel obstruction: Status: Acute Assessment and Plan: improving small bowel obstruction - gastrograffin challenge done yesterday and this am contrast in colon and small bowel less distended. clinically improved advance to clear liquids and if does well then dc ngtube later. he understands and agrees with plan ? curious for etiology -? infectious.cont with antibx for now Time Spent With Patient Time: Total time managing care of this patient today ____ minutes. Quality Stroke Does the patient have a stroke diagnosis?: No VTE Prior VTE?: No VTE Risk Level:: Surgical - low VTE Device Contraindication: N/A - Device Ordered VTE Drug Contraindication: Treatment Not Indicated
--- NOTE | 2022-05-20 15:08 | MHC.CM.PN ---
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 PT VERIFIES HIS PCP IS AT [facility] BUT UNSURE OF NAME, [facility] X2 AND PT EDUCATED ON AND DECLINES TO COMPLETE A HCP THIS ADMISSION. ANTIC D/C HOME NO SERVICES W/FAMILY FOR TRANSPORT
--- NOTE | 2022-05-20 15:33 | PC.NURSE ---
Patient tolerating clear liquids with no n/v or pain. NG removed per order at 1450. Tolerated well.
[2022-05-20 16:00] VITALS: BP 129/76; PULSE 76; RESP 18; TEMP 36.2; O2SAT 96
[2022-05-20 19:12] VITALS: BP 137/75; PULSE 71; RESP 18; TEMP 36.3; O2SAT 97
[2022-05-21] MEDS: Piperacillin Sodium/Tazobactam 3.375 GM in 0.9 % Sodium Chloride 50 ML IV ×4 (00:33→18:42)
[2022-05-21 03:09] VITALS: BP 116/73; PULSE 65; RESP 18; TEMP 36.5; O2SAT 97
[2022-05-21] MEDS: 0.9 % Sodium Chloride Flush 3 ML SYRINGE IVFLUSH ×2 (07:34→18:42)
[2022-05-21] MEDS: Pantoprazole Sodium 40 MG/10 ML VIAL IVPUSH (07:34)
[2022-05-21 07:46] VITALS: BP 117/77; PULSE 65; RESP 17; TEMP 36.6; O2SAT 97
--- NOTE | 2022-05-21 07:57 | PM.PNGS ---
Subjective Subjective Date of Service: 05/21/22 Interval history: continue to feel better denies abdl pain says he has been passing flatus Physical Exam Vital Signs: Vital Signs: Last Vital Signs Temp 97.8 F 05/21/22 07:46 Pulse 65 05/21/22 07:46 Resp 17 05/21/22 07:46 BP 117/77 05/21/22 07:46 Pulse Ox 97 05/21/22 07:46 O2 Del Method 05/21/22 07:46 BMI result Body Mass Index 28.2 Const: General: comfortable and no acute distress Resp: Effort & Inspection: normal respiratory effort Cardio: Rate: regular rate GI: Palpation (GI): Soft to palpation, not firm, nontender and no guarding Objective Data Active Medications Hydromorphone HCl (Hydromorphone Hcl 1 Mg/Ml Syringe) 0.5 mg IVPUSH Q4H PRN; Protocol PRN Reason: Pain, Severe (Pain Scale 7-10) Last Admin: 05/19/22 15:57 Dose: 0.5 mg Documented By: KATELYN Piperacillin Sod/Tazobactam (Sod 3.375 gm/ Sodium Chloride) 50 mls @ 100 mls/hr IV Q6H [facility] Last Infusion: 05/21/22 07:08 Dose: 0 mls/hr Documented By: FOX Acetaminophen ([facility]) 1,000 mg in 100 mls @ 400 mls/hr IV Q6H PRN PRN Reason: temp Ketorolac Tromethamine (Ketorolac Tromethamine 30 Mg/Ml Vial) 30 mg IVPUSH Q6H PRN PRN Reason: Pain, Moderate (Pain Scale 4-6 Stop: 05/24/22 00:35 Last Admin: 05/20/22 08:37 Dose: 30 mg Documented By: LIANNA Metoclopramide HCl (Metoclopramide Hcl 10 Mg/2 Ml Vial) 10 mg IVPUSH Q6H PRN PRN Reason: Nausea Ondansetron HCl (Ondansetron Hcl 4 Mg/2 Ml Vial) 4 mg IVPUSH RQ6H PRN PRN Reason: Nausea and Vomiting Pantoprazole Sodium (Pantoprazole Sodium 40 Mg/10 Ml Vial) 40 mg IVPUSH DAILY [facility] Last Admin: 05/21/22 07:34 Dose: 40 mg Documented By: FOX Pharmacy Consult (Consult Rx Perform Med Rec) 1 each MISCELLANE ONCE PRN PRN Reason: Consult order Sodium Chloride (0.9 % Sodium Chloride Flush 3 Ml Syringe) 3 ml IVFLUSH QSHIFT [facility] Last Admin: 05/21/22 07:34 Dose: 3 ml Documented By: FOX Labs 05/20/22 05:48 05/20/22 05:48 Procedures Date of Service Date of Service: 05/21/22 Progress Note: A&P Assessment and plan (1) Small bowel obstruction: Status: Acute Assessment and Plan: symptoms resolving ok to try to advance diet slowly later ambulate etiology uncertain - no previous abdominal surgery ?post inflammatory GI consult exam benign Time Spent With Patient Time: Total time managing care of this patient today ____ minutes. Quality Stroke Does the patient have a stroke diagnosis?: No VTE Prior VTE?: No VTE Risk Level:: Surgical - low VTE Device Contraindication: N/A - Device Ordered VTE Drug Contraindication: Treatment Not Indicated
--- NOTE | 2022-05-21 11:35 | PM.EVENT ---
Event Note Date of Service: 05/21/22 Event Note: GI consult dictated Small bowel obstruction seems improved Agree with present management. Consider sbft as outpatient. Time Spent With Patient Time: Total time managing care of this patient today ____ minutes.
[2022-05-21 15:24] VITALS: BP 119/75; PULSE 66; RESP 17; TEMP 36.4; O2SAT 99
[2022-05-21 19:32] VITALS: BP 116/74; PULSE 61; RESP 16; TEMP 36.1; O2SAT 96
--- NOTE | 2022-05-21 22:17 | CONS_ITS ---
DATE OF SERVICE: 05/21/2022 REFERRING PHYSICIAN: Dr. Caballero REASON FOR CONSULTATION: Small bowel obstruction. HISTORY OF PRESENT ILLNESS: The patient is a pleasant 31-year-old man, who was admitted to the hospital after presenting to the emergency room on May 19 with complaints of abdominal pain. The pain in the day before admission and was generalized across the abdomen with associated nausea, vomiting, as well as abdominal distention. He reports a fever as well. He denies any hematemesis or melena. He was evaluated in the emergency department with laboratory studies and x-rays, which are reviewed. CT scanning of the abdomen and pelvis was obtained, which is also reviewed. This is interpreted as showing a high-grade small bowel obstruction in the right lower quadrant involving the ileum. He was admitted to the hospital and NG tube placement was done. Clinically, he was improving and was also started on antibiotics. Followup KUB done yesterday showed radiographic improvement in the obstruction. His NG tube was removed and he was started on clear liquids. He denies any prior history of surgery. He has never had small-bowel obstruction before and has no personal history of Crohn disease. PAST MEDICAL HISTORY: He denies other medical or surgical illnesses. CURRENT MEDICATIONS: His current medication list is reviewed in the chart. ALLERGIES: THERE ARE NONE REPORTED. FAMILY HISTORY: This is reviewed with the patient and is noncontributory. SOCIAL HISTORY: There is no current substance abuse. He does use tobacco. He states he drinks alcohol. REVIEW OF SYSTEMS: SKIN: No pruritus. HEENT: Negative. CARDIOPULMONARY: No shortness of breath or chest pain. GASTROINTESTINAL: As above. GENITOURINARY: Negative. NEUROPSYCHIATRIC: Negative. PHYSICAL EXAMINATION: GENERAL: Shows pleasant male lying comfortably in bed. VITAL SIGNS: Reviewed in the electronic medical record and are stable. SKIN: Anicteric. HEENT: Shows no scleral icterus. NECK: Without lymphadenopathy or thyromegaly. LUNGS: Clear. HEART: Shows regular rate and rhythm. S1, S2. No murmur. ABDOMEN: Soft. There is some mild tenderness in the left upper quadrant to palpation. There is no guarding or rebound. EXTREMITIES: Without edema. LABORATORY DATA: Laboratory data and CT scan as well as plain films of the abdomen reviewed. IMPRESSION: Small-bowel obstruction. The etiology for this is not clear. He has no previous history of inflammatory bowel disease and did have a fever, suggesting this may have an inflammatory or infectious nature. This does not appear to be the area that would be amenable to reach with colonoscopy. I would consider a formal small-bowel study as an outpatient once he improves. I agree with treating him supportively as you are doing. Thank you for asking me to see him. I will follow him in the hospital with you. MD PRAVIN Almanzar/KRISTIN / [id number] MTDD
[2022-05-22] MEDS: Piperacillin Sodium/Tazobactam 3.375 GM in 0.9 % Sodium Chloride 50 ML IV ×3 (00:23→13:29)
[2022-05-22] MEDS: 0.9 % Sodium Chloride Flush 3 ML SYRINGE IVFLUSH ×2 (00:26→07:13)
[2022-05-22 03:40] VITALS: BP 118/73; PULSE 55; RESP 18; TEMP 36.6; O2SAT 98
[2022-05-22] MEDS: Pantoprazole Sodium 40 MG/10 ML VIAL IVPUSH (07:13)
[2022-05-22 07:40] VITALS: BP 128/81; PULSE 63; RESP 17; TEMP 36.2; O2SAT 98
--- NOTE | 2022-05-22 08:38 | PM.PNGS ---
Subjective Subjective Date of Service: 05/22/22 <Alexandra Rubio PA-C - Last Filed: 05/22/22 08:41> 05/22/22 <Conrado Caballero MD - Last Filed: 05/22/22 09:37> Interval history: Tolerating clear liquids without abd pain, nausea. Passing flatus but no BM. Feels hungry and wants to eat solid food. <Alexandra Rubio PA-C - Last Filed: 05/22/22 08:41> Physical Exam Vital Signs: Vital Signs: Last Vital Signs Temp 97.2 F 05/22/22 07:40 Pulse 63 05/22/22 07:40 Resp 17 05/22/22 07:40 BP 128/81 05/22/22 07:40 Pulse Ox 98 05/22/22 07:40 O2 Del Method 05/22/22 07:40 BMI result Body Mass Index 28.2 <Alexandra Rubio PA-C - Last Filed: 05/22/22 08:41> Const: General: comfortable, no acute distress and alert <Alexandra Rubio PA-C - Last Filed: 05/22/22 08:41> Orientation/consciousness: patient oriented x3 <Alexandra Rubio PA-C - Last Filed: 05/22/22 08:41> Resp: Effort & Inspection: normal respiratory effort <RIA Merino Last Filed: 05/22/22 08:41> GI: Inspection: No distended <Alexandra Rubio PA-C - Last Filed: 05/22/22 08:41> Palpation (GI): Soft to palpation, nontender, no guarding and not rigid <Alexandra Rubio PA-C - Last Filed: 05/22/22 08:41> Skin: General skin exam: no rashes or lesions noted <RIA Merino Last Filed: 05/22/22 08:41> Neuro: General: patient oriented x3 and moves all extremities <RIA Merino Last Filed: 05/22/22 08:41> Extrem: General: Yes no clubbing, cyanosis or edema <Alexandra Rubio PA-C - Last Filed: 05/22/22 08:41> Objective Data Active Medications Acetaminophen (Acetaminophen 325 Mg Tablet) 650 mg PO Q6H PRN PRN Reason: fever, pain Hydromorphone HCl (Hydromorphone Hcl 1 Mg/Ml Syringe) 0.5 mg IVPUSH Q4H PRN; Protocol PRN Reason: Pain, Severe (Pain Scale 7-10) Last Admin: 05/19/22 15:57 Dose: 0.5 mg Documented By: KATELYN Piperacillin Sod/Tazobactam (Sod 3.375 gm/ Sodium Chloride) 50 mls @ 100 mls/hr IV Q6H [facility] Last Infusion: 05/22/22 07:23 Dose: 0 mls/hr Documented By: FOX Ketorolac Tromethamine (Ketorolac Tromethamine 30 Mg/Ml Vial) 30 mg IVPUSH Q6H PRN PRN Reason: Pain, Moderate (Pain Scale 4-6 Stop: 05/24/22 00:35 Last Admin: 05/20/22 08:37 Dose: 30 mg Documented By: LIANNA Metoclopramide HCl (Metoclopramide Hcl 10 Mg/2 Ml Vial) 10 mg IVPUSH Q6H PRN PRN Reason: Nausea Ondansetron HCl (Ondansetron Hcl 4 Mg/2 Ml Vial) 4 mg IVPUSH RQ6H PRN PRN Reason: Nausea and Vomiting Oxycodone HCl (Oxycodone Hcl Immed Release 5 Mg Tablet) 5 mg PO Q4H PRN PRN Reason: Pain, Moderate (Pain Scale 4-6 Pantoprazole Sodium (Pantoprazole Sodium 40 Mg/10 Ml Vial) 40 mg IVPUSH DAILY [facility] Last Admin: 05/22/22 07:13 Dose: 40 mg Documented By: FOX Pharmacy Consult (Consult Rx Perform Med Rec) 1 each MISCELLANE ONCE PRN PRN Reason: Consult order Sodium Chloride (0.9 % Sodium Chloride Flush 3 Ml Syringe) 3 ml IVFLUSH QSHIFT [facility] Last Admin: 05/22/22 07:13 Dose: 3 ml Documented By: FOX <Alexandra Rubio PA-C - Last Filed: 05/22/22 08:41> Labs CBC & Chem 7: 05/20/22 05:48 05/20/22 05:48 <Alexandra Rubio PA-C - Last Filed: 05/22/22 08:41> Procedures Date of Service Date of Service: 05/22/22 <Alexandra Rubio PA-C - Last Filed: 05/22/22 08:41> Progress Note: A&P Assessment and plan (1) Small bowel obstruction: Status: Acute <Alexandra Rubio PA-C - Last Filed: 05/22/22 08:41> Assessment and Plan: symptoms have completely resolved abd soft, nontender feels well diet as tolerated ok to dc home once tolerating ffup with GI after discharge <Conrado Caballero MD - Last Filed: 05/22/22 09:37> Assessment and Plan: SBO of uncertain etiology- ?post inflammatory, narrowing of distal ileum on imaging Appears resolved, tolerating clears Advance to low residue diet GI- SBFT when symptoms resolved If tolerating diet, stable for discharge to home today, f/u in office Patient comfortable with plan <Alexandra Rubio PA-C - Last Filed: 05/22/22 08:41> Time Spent With Patient Time: Total time managing care of this patient today ____ minutes. <Alexandra Rubio PA-C - Last Filed: 05/22/22 08:41> Quality Stroke Does the patient have a stroke diagnosis?: No <Alexandra Rubio PA-C - Last Filed: 05/22/22 08:41> VTE Prior VTE?: No <Alexandra Rubio PA-C - Last Filed: 05/22/22 08:41> VTE Risk Level:: Surgical - low <Alexandra Rubio PA-C - Last Filed: 05/22/22 08:41> VTE Device Contraindication: N/A - Device Ordered <Alexandra Rubio PA-C - Last Filed: 05/22/22 08:41> VTE Drug Contraindication: Treatment Not Indicated <Alexandra Rubio PA-C - Last Filed: 05/22/22 08:41>
--- NOTE | 2022-05-22 13:17 | PM.EVENT ---
Event Note Date of Service: 05/22/22 Event Note: feels well says he had good breakfast and lunch denies abdl pain abd soft, nontender passing flatus says he feels great ok to dc home I can see him in office for ffup Time Spent With Patient Time: Total time managing care of this patient today ____ minutes.
--- NOTE | 2022-05-22 13:59 | MHC.CM.PN ---
DC TODAY - HOME SELF-CARE
--- NOTE | 2022-05-23 08:54 | PM.DS ---
DS: Providers Provider Date of Service: 05/22/22 Date of admission: 05/19/22 00:37 Primary care physician: Unknown Physician Attending physician on admission: Eli Braun Consults: 05/19/22 00:32 Consult to General Surgery Stat Consulting Provider: Eli Braun Reason for consultation: SBO 05/21/22 09:51 Consult to Gastroenterology Routine Consulting Provider: Hiren Gómez Reason for consultation: SBO, distal ileum with narrowing and hyperemia, no prior surgical hx Attending physician on discharge: Conrado Caballero DS: Diagnosis Discharge Diagnosis (1) Small bowel obstruction: Status: Acute DS: Summary Hospital Course Hospital Course: HPI ON ADMISSION: Albert Mahan is a 31 year old male who came into the emergency room because he had 24 hours of abdominal pain. He went to work yesterday but the pain was worse so he came to the emergency room. He was vomiting and he did have passage of some stool. No other sick contacts he has not eaten anything unusual he has not had any abdominal surgery in the past. He denies any knowledge of his family having ulcerative colitis or Crohn's disease. NG tube was placed but despite this he still vomited earlier on the floor. Uncertain if it was working as well. He denies any fevers or chills. He has never had pain like this before. In the emergency room the patient had a CT scan which showed dilated SB and areas near the distal ileum with narrowing of the small bowel no evidence of ischemic bowel. His white count is normal. HOSPITAL COURSE: He was admitted to the surgical service for further treatment of the SBO of uncertain etiology. He was started on IV antibiotics given the distal ileum narrowing, kept NPO with NGT for bowel rest/decompression and on IV fluids. A small-bowel Gastrograffin challenge was performed which showed contrast in colon and small bowel less distended.?He began passing flatus and stool and was asymptomatic. His NGT was therefore removed. He was started on clear liquids and this was advanced to low residue the following day. He was tolerating solid food without recurrent abdominal pain, nausea or vomiting. He continued with good GI function. He felt ready for discharge. He was discharged to home on 05/22/22 in stable condition. He can follow up in the office in 2 weeks. Status at Discharge Functional status at discharge: independent ambulation Overall status at discharge: patient is back to baseline Time Spent with Patient Time attestation: Total time managing care of this patient today ____ minutes. Discharge coordination time: Less than 30 minutes Quality: Safe Use of Opioids Does Pt have an Active Cancer Diagnosis on the Problem List?: No Quality: Stroke Does the patient have a stroke diagnosis?: No Physical Exam Vital Signs: Vital Signs: Last Vital Signs Temp 97.2 F 05/22/22 07:40 Pulse 63 05/22/22 07:40 Resp 17 05/22/22 07:40 BP 128/81 05/22/22 07:40 Pulse Ox 98 05/22/22 07:40 O2 Del Method 05/22/22 07:40 BMI result Body Mass Index 28.2 Const: General: comfortable, no acute distress, well developed and alert Orientation/consciousness: patient oriented x3 Resp: Effort & Inspection: normal respiratory effort GI: Inspection: No distended Skin: General skin exam: no rashes or lesions noted Neuro: General: patient oriented x3 and moves all extremities Extrem: General: Yes no clubbing, cyanosis or edema Discharge Plan Discharge Anticipated Discharge Date/Time: 05/22/22 13:41 Patient Disposition: Home, Self-Care Discharge Diagnosis: SBO Referrals: Conrado Caballero MD [Physician] - 2 Weeks Physician,Unknown J [Primary Care Provider] - 1 Week Discharge Medications: No Action No Known Home Meds Discharge Orders: Discharge Order (Routine); Ordered 05/22/22 Ordered By: Conrado Caballero Diet: Advance to usual diet Activity on Discharge: As tolerated Stand Alone Forms: Patient Portal Discharge page, Work/School Release Care Plan Goals: resolution of abd pain Health Concerns: SBO Plan of Treatment: bowel rest, IVF antibiotics F/u in office Assessment: Resolved Discharge Date/Time: 05/22/22 15:00
== END 2022-05-22 15:00 | disposition home or self-care (01) | DRG 247 ==
LOC: HO.ED 05-19 00:58 → HO.EDOVER 05-19 01:11 → HO.S3 05-19 01:16
PROVIDERS: Nurse Practitioner Family; Physician Assistant; Admitting Provider Surgery; Emergency Provider Emergency Medicine; PCP General Practice; Visit Provider Surgery
DX: K56.609 Unspecified intestinal obstruction, unspecified as to partial versus complete obstruction (principal); F17.210 Nicotine dependence, cigarettes, uncomplicated; Z71.6 Tobacco abuse counseling; Z20.822 Contact with and (suspected) exposure to COVID-19
CPT/HCPCS: 0241U; 36415; 71045; 74018; 74177; 80053; 83690; 85025; 99285; J1170; J1885; J2270; J2405; J2543; Q9967

== ENCOUNTER → 2022-06-04 14:41 | Outpatient (BNVA) | payer OTHER, SELFPAY | PROVIDERS: Visit Provider Surgery | DX: K56.600 Partial intestinal obstruction, unspecified as to cause (principal) | CPT/HCPCS: 99212 ==

== ENCOUNTER 2023-02-05 10:15 | Outpatient (REF) | payer OTHER, SELFPAY | END 2023-02-05 10:16 | disposition home or self-care (01) | LOC: HO.HOSX 10:15 | PROVIDERS: Visit Provider Physician Assistant | DX: M76.62 Achilles tendinitis, left leg (principal) | CPT/HCPCS: 73610; 99212 ==

== ENCOUNTER 2023-02-05 11:02 | Outpatient (AMB) | payer OTHER, SELFPAY ==
[2023-02-05 11:08] VITALS: BMI 27.7
--- NOTE | 2023-02-05 11:08 | MHC.OFFVIS ---
Intake Vital Signs 02/05/23 11:08 Height 5 ft 8 in Weight 182 lb BMI 27.7 Intake Visit Reasons: New Prob - left Achilles tendintis Intake Note: Albert is a 32 year old male who presents today for a follow up for his left ankle pain. Patient reports still having ongoing pain for 6 months. He states that his pain is on the lateral aspect of the foot and it wraps around his ankle. Allergies No Known Allergies Allergy (Verified 02/05/23 11:19) HPI New Prob - left Achilles tendintis HPI Details 32-year-old male, who is Mauritian speaking, presents in the office today for an evaluation of left ankle pain. The patient reports he has had ongoing pain for 6 months, since 08/2022. He claims his pain is on the lateral aspect of the left foot and wraps around to his ankle. 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 Able to dorsiflex, plantarflex, pronate, and supinate with minimal discomfort. Tenderness to palpation over the achilles. Negative Persaud test. Assessment & Plan Assessment & Plan (1) Achilles tendinitis of left lower extremity: Code(s): M76.62 - Achilles tendinitis, left leg Plan Mr. Tommy Mahan is a 32-year-old male, who is Mauritian speaking, presents in the office today for an evaluation of left ankle pain. The patient reports he has had ongoing pain for 6 months, since 08/2022. He claims his pain is on the lateral aspect of the left foot and wraps around to his ankle. The patient will be placed in a tall walking boot, off the shelf, with wedges while in the office today to try and off load the tension in the achilles and allow it to rest. He will be referred to physical therapy. Follow up will be in 4 weeks, or sooner if needed. X-rays of the left lower extremity obtained while in the office today and reviewed by me, Nannette Gay PA-C, revealed no evidence of acute fracture or dislocation. Orders: Orders PT Evaluation and Treatment Today M76.62 - Achilles tendinitis, left leg Patient Instructions: Scribed for Nannette Gay PA-C by [facility] or medical, on 02/05/2023 at 11:04 am, EST. Coding Level of Care Code New Pt Level 4 (11615) Diagnoses Achilles tendinitis of left lower extremity M76.62
== END 2023-02-05 11:41 | disposition home or self-care (01) ==
PROVIDERS: Visit Provider Physician Assistant
DX: M76.62 Achilles tendinitis, left leg (principal)
CPT/HCPCS: 99214

== ENCOUNTER 2023-03-05 11:30 | Outpatient (AMB) | payer OTHER, SELFPAY ==
[2023-03-05 11:32] VITALS: BMI 27.7
--- NOTE | 2023-03-05 11:32 | MHC.OFFVIS ---
Intake Vital Signs 03/05/23 11:32 Height 5 ft 8 in Weight 182 lb BMI 27.7 Intake Visit Reasons: ov- left Achilles tendintis Intake Note: Albert is a 32 year old male who presents today for a follow up for his left ankle pain. Patient reports he is doing better. He came today with out his boot. Allergies No Known Allergies Allergy (Verified 03/05/23 11:33) HPI ov- left Achilles tendintis HPI Details 32-year-old male, who is French speaking, presents in the office today for a follow up of left lower extremity achilles tendinitis. The patient presents in the office today out of the boot. He claims he is doing better. 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 Able to dorsiflex, plantarflex, pronate, and supinate with minimal discomfort. Tenderness to palpation over the achilles. Negative Persaud test. NVI. Assessment & Plan Assessment & Plan (1) Achilles tendinitis of left lower extremity: Code(s): M76.62 - Achilles tendinitis, left leg Plan Mr. Tommy Mahan is a 32-year-old male, who is French speaking, presents in the office today for a follow up of left lower extremity achilles tendinitis. The patient presents in the office today out of the boot. He claims he is doing better. The patient will gradually resume normal activities as tolerated given the rule of thumb that he has no pain or discomfort with these activities. Should his symptoms return or worsen he should go back into the boot and contact the office. We again discussed the role of physical therapy while in the office today. However, he has decided to attempt to resume back to normal activities and to see how it goes. Follow up will be PRN, or sooner if needed. Patient Instructions: Scribed for Nannette Gay PA-C by [employer] [employer] [facility] [employer] [facility], on 03/05/2023 at 11:34 am, EST. Coding Level of Care Code Est Pt Level 3 (70749) Diagnoses Achilles tendinitis of left lower extremity M76.62
== END 2023-03-05 11:56 | disposition home or self-care (01) ==
PROVIDERS: Visit Provider Physician Assistant
DX: M76.62 Achilles tendinitis, left leg (principal)
CPT/HCPCS: 99213

== ENCOUNTER → 2023-03-05 11:30 | Outpatient (BNVA) | payer OTHER, SELFPAY | PROVIDERS: Visit Provider Physician Assistant | DX: M76.62 Achilles tendinitis, left leg (principal) | CPT/HCPCS: 99212 ==

== ENCOUNTER 2023-05-04 13:47 | Emergency (ER) | payer OTHER, SELFPAY ==
[2023-05-04 15:31] VITALS: BP 116/62; PULSE 59; RESP 18; TEMP 36; O2SAT 96; BMI 30.4
--- NOTE | 2023-05-04 15:37 | ED_ITS ---
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 Patient reports his symptoms started yesterday. He did have some burning upper abdominal pain He states that he has several family members with similar symptoms Denies any history abdominal surgeries Denies any fevers or chills At the time of my evaluation he reports his symptoms have improved but he is still slightly nauseous Denies any black or bloody stool Related Data Previous Rx's Medication Instructions Recorded ondansetron 4 mg disintegrating 4 mg PO Q8H PRN nausea and 05/04/23 tablet vomiting #20 tabs Allergies Allergy/AdvReac Type Severity Reaction Status Date / Time No Known Allergies Allergy Verified 03/05/23 11:33 Review of Systems Constitutional: Constitutional: Denies chills and Denies fever(s) Eyes: Eyes: Denies blurry vision ENT: Denies sore throat Cardiovascular: Cardiovascular: Denies chest pain and Denies dyspnea Respiratory: Respiratory: Denies cough and Denies dyspnea Gastrointestinal: Gastrointestinal: Reports abdominal pain, Denies hematochezia, Denies coffee ground emesis, Reports diarrhea, Reports nausea and Reports vomiting Musculoskeletal: Musculoskeletal: Denies back pain PMFSH Past Medical History Medical History (Updated 05/04/23 @ 18:15 by All Zelaya) Partial small bowel obstruction No known health problems Social History Social History Household Members: Family Housing: Apartment Do you presently have visiting nurse or other home services: No Alcohol intake: current Alcohol intake frequency: holidays/special occasions only Patient Tobacco Use Status: Current everyday Tobacco user Tobacco use type: Cigarette e-Cigarette/Vaping Use: Never Used Second Hand Smoke Exposure: No Advance Directives: No Advance Directives Information Provided: Yes service: No Current occupational status: employed 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 Physical Exam ED Vital Signs: Vital Signs - 24 hr 05/04/23 15:31 Temperature 96.8 F Pulse Rate 59 Respiratory Rate 18 Blood Pressure 116/62 Pulse Oximetry 96 Oxygen Delivery Method Room Air BMI result Body Mass Index 30.4 Const General: healthy appearing, comfortable, no acute distress, alert and awake Nutritional Appearance: well nourished Orientation/consciousness: patient oriented x3 HENMT Head: Yes normocephalic and Yes atraumatic Eyes Eyelids: Yes eyelids normal Conjunctivae: conjunctivae normal Sclerae: sclerae normal Corneas: corneas normal Pupils: Equal, round and reactive pupils present EOM: EOMs intact bilaterally Neck Neck: Yes full ROM Resp Effort & Inspection: normal respiratory effort, able to speak in complete sentences and not labored GI Inspection: No distended Palpation (GI): Soft to palpation, not firm, nontender, no guarding and not rigid Auscultation: normoactive bowel sounds Skin General skin exam: elasticity normal Neuro General: patient oriented x3 Cranial nerves: Yes Equal, round and reactive pupils present and Yes Bilaterally intact EOM present Cognition (Neuro): normal cognition Extrem Other: Moving all extremities well without any obvious deformities Course Course Course Narrative: RME- 32-year-old male presents for evaluation of vomiting, diarrhea and abdominal pain. He has multiple sick contacts at home. Plan for viral swabs Medical Decision Making Medical Decision Making MDM Narrative: Healthy 32-year-old male presents for evaluation vomiting and diarrhea. He has positive sick contacts. The patient is negative for flu, COVID, RSV. His vital signs are within normal limits, his abdominal exam is reassuring. His symptoms have improved without any intervention. Considered labs over given that he is nontender was to vital signs and positive sick contacts these were deferred at this time. He is also nontender exam so imaging was deferred at this time as well. [facility] Diagnosis Differential Diagnoses: The differential diagnosis associated with the presentation includes Viral syndrome Gastritis Gastroenteritis Biliary colic less likely Lab Data Labs: Lab Results 05/04/23 Range/Units 15:38 COVID-19 (COLTEN) Negative (Negative) COVID-19 Clin Com See Note Influenza Type A (ZAYRA) Negative (Negative) Influenza Type B (ZAYRA) Negative (Negative) Influenza A & B Note See Note Tests considered The following testing was considered but not selected: CBC, CMP, lipase, CT scan of the abdomen pelvis Discharge Plan Discharge Clinical Impression: Abdominal pain, vomiting, and diarrhea Patient Disposition: Home, Self-Care Instructions: Acute Nausea and Vomiting (ED) Additional Instructions: You tested negative for COVID, influenza, RSV. Your symptoms are still likely related to a different virus. Hydrate well by drinking frequent small sips at a time. You may use Zofran for nausea/vomiting. Follow-up your primary doctor and return for new or worsening symptoms Prescriptions: New ondansetron 4 mg tablet,disintegrating 4 mg PO Q8H PRN (Reason: nausea and vomiting) Qty: 20 0RF
[2023-05-04 16:03] LABS: IDNOW Serial# BCCEAD1C; Influenza A Negative (Negative); Influenza B2 Negative (Negative)
[2023-05-04 16:04] LABS: COVID-19 Test Negative (Negative); IDNOW Serial# 08D9AD1C
== END 2023-05-04 18:30 | disposition home or self-care (01) ==
PROVIDERS: Emergency Provider Emergency Medicine; PCP Registered Nurse
DX: R10.10 Upper abdominal pain, unspecified (principal); R11.2 Nausea with vomiting, unspecified; Z11.52 Encounter for screening for COVID-19; Z20.822 Contact with and (suspected) exposure to COVID-19
CPT/HCPCS: 87502; 87635; 99282; 99283

== ENCOUNTER 2023-07-25 08:49 | Outpatient (REF) | payer OTHER, SELFPAY ==
[2023-07-25 12:27] LABS: Alanine Aminotransferase 59 U/L (0-40); Albumin Level 4.4 g/dL (3.5-5.0); Alkaline Phosphatase 83 U/L (39-117); Anion Gap 13 (12-20); Aspartate Amino Transferase 42 U/L (5-37); Bilirubin Total 0.4 mg/dL (0.0-1.0); Blood Urea Nitrogen 14 mg/dL (9-16); Calcium 9.1 mg/dL (8.4-10.2); Carbon Dioxide 26 mmol/L (22-29); Chloride 108 mmol/L (96-108); Cholesterol 156 mg/dL (<200); Estimated Glomerular Filt Rate > 60; Glucose Random 116 mg/dL (60-115); HDL Cholesterol 26 mg/dL (>40); LDL Cholesterol Calculated 82 mg/dL (<100); Potassium 3.8 mmol/L (3.3-5.1); Sodium 143 mmol/L (135-145); Total Protein 8.1 g/dL (6.5-8.0); Triglycerides 243 mg/dL (<150)
[2023-07-25 12:41] LABS: Vitamin D 25-OH Total 14.5 ng/mL (>30)
[2023-07-26 08:55] LABS: HBS Num1 44.96 mIU/mL (0-7.99); HBc Num1 0.16 S/CO (0.00-0.79); HBsAGNum1 0.35 S/CO (0.00-0.99); Hepatitis B Core Antibody Nonreactive (Nonreactive); Hepatitis B Surface Antigen Negative (Negative); ~Hepatitis B Surface Antibody REACTIVE (Nonreactive)
[2023-07-26 09:03] LABS: HIV AB/AG Nonreactive (Nonreactive); HIV Num 1 0.05 S/CO (0.00-0.99); ~HepC Num1 0.22 S/CO (0.00-0.79); ~Hepatitis C Antibody Nonreactive (Nonreactive)
[2023-07-26 14:59] LABS: RPR Rapid Plasma Reagin NON-REACTIVE (NON-REACTIVE)
== END 2023-07-25 08:50 | disposition home or self-care (01) ==
LOC: HO.HHCL 08:49
PROVIDERS: Internal Medicine; Visit Provider Nurse Practitioner
DX: Z11.3 Encounter for screening for infections with a predominantly sexual mode of transmission (principal); Z11.4 Encounter for screening for human immunodeficiency virus [HIV]; N48.1 Balanitis; E55.9 Vitamin D deficiency, unspecified; E66.3 Overweight
CPT/HCPCS: 36415; 80053; 80061; 82306; 86592; 86704; 86706; 86803; 87340; 87389

== ENCOUNTER 2023-07-25 15:23 | Outpatient (REF) | payer OTHER, SELFPAY ==
[2023-07-25 18:37] LABS: CT PCR NOT DETECTED (Not Detect.); NG PCR NOT DETECTED (Not Detect.)
== END 2023-07-25 15:24 | disposition home or self-care (01) ==
LOC: HO.HHCL 15:23
PROVIDERS: Visit Provider Internal Medicine
DX: N48.1 Balanitis (principal)
CPT/HCPCS: 0353U

== ENCOUNTER 2024-01-13 11:56 | Outpatient (REF) | payer OTHER, SELFPAY ==
[2024-01-13 13:47] LABS: Alanine Aminotransferase 35 U/L (0-40); Albumin Level 4.5 g/dL (3.5-5.0); Alkaline Phosphatase 67 U/L (39-117); Aspartate Amino Transferase 24 U/L (5-37); Bilirubin Direct 0.2 mg/dL (0.0-0.5); Bilirubin Total 0.4 mg/dL (0.0-1.0); Cholesterol 171 mg/dL (<200); HDL Cholesterol 34 mg/dL (>40); LDL Cholesterol Calculated 115 mg/dL (<100); Total Protein 7.8 g/dL (6.5-8.0); Triglycerides 114 mg/dL (<150)
== END 2024-01-13 11:57 | disposition home or self-care (01) ==
LOC: HO.HHCL 11:56
PROVIDERS: Visit Provider Nurse Practitioner
DX: E78.1 Pure hyperglyceridemia (principal); R74.8 Abnormal levels of other serum enzymes
CPT/HCPCS: 36415; 80061; 80076